=== PATIENT | female | born 1990 | race Caucasian/White ===

== ENCOUNTER → 2017-12-18 | Outpatient (CLI) | payer MEDICAID ==
--- NOTE | 2017-12-18 17:21 | Diagnostic Imaging Report ---
INDICATION: survey. TECHNIQUE: Multiple real-time grayscale images were obtained over the gravid uterus. COMPARISON: None. FINDINGS: There are no prior studies available for comparison. There is a single live fetus in cephalic presentation. heart motion was noted and a rate of 135 BPM was recorded. There were no abnormalities identified. However, the lower spine was not well visualized. The growth parameters are fairly uniform. The amniotic fluid volume is within normal limits. The placenta is anterior and there is no previa. The cervix was identified and measures 3.7 cm in length. IMPRESSION: 1. There is single live fetus at approximately 29 weeks 3 days gestation +/-2.5 weeks. The EDC is March 02, 2018. 2. There were no abnormalities identified but the lower spine was not well visualized. It may prove worthwhile to have a short-term (2-4 week) followup exam for further evaluation. 3. The growth parameters are fairly uniform. Biometrical measurements are as follows: Biparietal 7.24 cm, age 29 weeks 1 days. Head circumference 27.97 cm, age 30 weeks 5 days. Abdominal circumference 25.30 cm, age 29 weeks 4 days. Femur length 5.31 cm, age 28 weeks 2 days. Sonographic estimate age: 29 weeks 3 days. Sonographic estimated date of delivery: 03/02/18. Estimated Weight: 1344 gm (+/- 196 gm). LMP percentile: 37%. heart rate: 135 beats per minute. number: 1 of 1. Dictated by: Dictated on workstation # [id number]
== END ==
LOC: RAD 14:55
PROVIDERS: ATTEND Obstetrics & Gynecology
DX: O34.219 Maternal care for unspecified type scar from previous cesarean delivery (principal); Z3A.29 29 weeks gestation of pregnancy
CPT/HCPCS: 76805

== ENCOUNTER → 2018-01-28 | Outpatient (CLI) | payer MEDICAID ==
--- NOTE | 2018-01-28 15:08 | Diagnostic Imaging Report ---
INDICATION: Followup spine. TECHNIQUE: Multiple real-time grayscale images were obtained over the gravid uterus. COMPARISON: 12/18/2017. FINDINGS: There is a single live fetus in a cephalic presentation. heart rate was recorded at 134 beats per minute. Placenta is anterior. Amniotic fluid index is 13.2 cm. spine was evaluated today and appears unremarkable. IMPRESSION: Unremarkable limited obstetrical ultrasound. Dictated by: Dictated on workstation # [id number]
== END ==
LOC: RAD 11:07
PROVIDERS: ATTEND Obstetrics & Gynecology
DX: Z36.89 Encounter for other specified antenatal screening (principal); Z3A.00 Weeks of gestation of pregnancy not specified
CPT/HCPCS: 76816

== ENCOUNTER 2018-02-24 12:34 | Outpatient (CLI) | payer MEDICAID ==
[~2018-02-24] VITALS: Ht 151.1 cm; Wt 74.4 kg
[2018-02-24] MEDS ORDERED: PREN-53 PO (12:50)
[2018-02-24] MEDS ORDERED: FAMO40TA72 PO (12:50)
== END 2018-02-24 13:14 ==
LOC: PREOP 12:34
PROVIDERS: ATTEND Obstetrics & Gynecology
DX: Z01.818 Encounter for other preprocedural examination (principal)

== ENCOUNTER 2018-02-26 06:54 | Inpatient (IN) | payer MEDICAID ==
[~2018-02-26] VITALS: Ht 151.1 cm; Wt 74.4 kg
[~2018-02-26 06:54] MED LIST: FAMO40TA72 PO; PREN-53 PO
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
--- OUTSIDE RECORDS SUMMARY | 2018-02-26 06:59 | XMS REPORT | Continuity of Care Document ---
Author Author [facility] Organization [facility] Address [facility] [address] [place] [address] Phone Unavailable Support Name Relationship Address Phone GAEL LEE/DANE COLLINS Caregiver [address] [place] [address] NANCY MARTINEZ MD Caregiver [address] [place] [address] LITZY DONAHUE Next Of Kin [address] [place] [address] Insurance Providers Payer Name Policy Number Subscriber Name Relationship Self Pay Insurance Estrellita Watkins 18 Self / Same As Patient Advance Directives Directive Response Recorded Date/Time Do you have an Advanced Directive? No 12/06/04 10:09am Advance Directives No 09/05/13 11:02am Living Will No 09/05/13 11:02am Health Care Proxy No 03/20/14 3:34pm Power of Feed Mill Tender for Health Care No 09/05/13 11:02am Organ, [...] Instructions Order Date Discontinued Date Status Prenat Multivit/[place]/Iron/Folic Ac 1 Tab PO DAILY 01/07/10 Discontinued Nitrofurantoin/Nitrofuran Mac* 100 Mg PO TWICE A DAY 14 Qty 01/07/10 07/16/10 Discontinued [Ibuprofen] PO NEEDED 07/16/10 01/05/12 Discontinued Cephalexin Monohydrate 500 Mg PO FOUR TIMES DAILY 40 Qty 07/16/1007/11 Discontinued No Known Medications 11/05/12 03/25/14 Discontinued Prenat Multivit/[place]/Iron/Folic Ac 1 Udtab PO DAILY 05/24/13 Discontinued [...] care. Functional Status Query Response Date Recorded [place] Coma Scale Total 15 March 20, 2014 [...] /hpf H - CULT PP Urine Specific [place] May 24, 2013 1:45pm 1.015 N 1.010-1.025 [...] Encounters Encounter Location Date/Time Departed Emergency Room [facility] 03/20/14 9:33pm Registered Emergency Room [facility] 03/20/14 10:22am Recent Diagnosis
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
--- NOTE | 2018-02-26 07:00 | NUR ---
Arrived to unit for repeat . Wt obtained and to room 314, gowned and urine sample obtained. To bed and monitors on. Oriented to room, call light and surroundings. bed controls explained. plan of care reviewed with pt and family at bedside.
[2018-02-26 07:34] VITALS: BP 112/60
[2018-02-26] MEDS ORDERED: metroNIDAZOLE 500MG/100ML IVPB 100 ML IV ONE (07:45)
[2018-02-26] MEDS ORDERED: ceFAZolin INJECTION 1,000 MG in NS (IVPB) 50 ML IV ONE (07:45)
[2018-02-26] MEDS ORDERED: LACTATED RINGERS 1,000 ML IV PRN ×2 (07:48)
[2018-02-26] MEDS ORDERED: METOCLOPRAMIDE INJ 10 MG/2 ML (REGLAN) IV ONE (08:00)
[2018-02-26] MEDS ORDERED: FAMOTIDINE 20MG/2ML IV (PEPCID) IV ONE (08:00)
[2018-02-26] MEDS ORDERED: CATHETER FLUSH 10 ML SYR IV PRN (08:00)
[2018-02-26] MEDS ORDERED: CITRIC ACID/SOB CIT (BICITRA) 30 ML UDC PO ONE (08:00)
[2018-02-26 08:19] LABS: BASOPHILS % (AUTO) 0 % (0-10); EOSINOPHILS # (AUTO) 0.1 10^3/uL (0.0-0.3); EOSINOPHILS % (AUTO) 1 % (0-10); HEMATOCRIT 35 % (35-52); HEMOGLOBIN 11.7 G/DL (11.5-16.0); LYMPHOCYTES # (AUTO) 2.4 X 10^3 (1.0-4.0); LYMPHOCYTES % (AUTO) 18 % (12-44); MEAN CORPUSCULAR HEMOGLOBIN 31 PG (25-34); MEAN CORPUSCULAR HGB CONC 34 G/DL (32-36); MEAN CORPUSCULAR VOLUME 90 FL (80-99); MEAN PLATELET VOLUME 10.7 FL (7.4-10.4); MONOCYTES # (AUTO) 1.1 X 10^3 (0.0-1.0); MONOCYTES % (AUTO) 8 % (0-12); NEUTROPHILS # (AUTO) 9.9 X 10^3 (1.8-7.8); NEUTROPHILS % (AUTO) 73 % (42-75); PLATELET COUNT 219 10^3/uL (130-400); RED BLOOD COUNT 3.84 10^6/uL (4.35-5.85); RED CELL DISTRIBUTION WIDTH 13.4 % (10.0-14.5); WHITE BLOOD COUNT 13.6 10^3/uL (4.3-11.0)
--- NOTE | 2018-02-26 08:30 | NUR ---
fhr 125, +accels, no decels. ctx noted q 6 min duration 80-100sec, mild palpation
--- NOTE | 2018-02-26 08:38 | Progress Note-Pre Operative ---
Pre-Operative Progress Note H&P Reviewed The H&P was reviewed, patient examined and no changes noted. Date Seen by Provider: Feb 26, 2018 Time Seen by Provider: 08:20 Date H&P Reviewed: Feb 26, 2018 Time H&P Reviewed: 08:15 Pre-Operative Diagnosis: previous section, ovarian cancer risk reduction SIMEON WHEELER DO Feb 26, 2018 08:38
[2018-02-26] MEDS ORDERED: FLU QUADRIvalent (5+ YOA) 2018-2019 (AFLURIA) 0.5 ML IM ONE (08:45)
[2018-02-26] MEDS ORDERED: LIDOCAINE PF 2% 5 ML (XYLOCAINE) VIAL ONE (09:00)
[2018-02-26] MEDS ORDERED: OXYTOCIN/NORMAL SALINE 1,000 ML IV ONE (09:00)
[2018-02-26] MEDS ORDERED: BUPIVACAINE SPINAL 0.75% (SENSORCAINE) 2 ML AMP ONE (09:00)
[2018-02-26] MEDS ORDERED: fentaNYL INJECTION 100 MCG/2 ML AMP ONE (09:01)
--- NOTE | 2018-02-26 09:08 | NUR ---
pt off monitors and ambulates to OR suite by OR staff for repeat
--- NOTE | 2018-02-26 09:08 | NUR ---
fhr pattern 120 with mod variabilty, accels present, no decels. ctx 3-5min, duration 60-80sec, mild palpation monitors off and pt ambulates to OR suite accompanied by OR staff.
[2018-02-26 09:28] LABS: CLARITY,URINE CLEAR; COLOR,URINE AMBER; GLUCOSE, URINE (UA) NEGATIVE (NEGATIVE); KETONES,URINE 1+ (NEGATIVE); LEUKOCYTE ESTERASE ,URINE 2+ (NEGATIVE); NITRITE,URINE NEGATIVE (NEGATIVE); PH,URINE 6 (5-9); PROTEIN,URINE 3+ (NEGATIVE); UROBILINOGEN,URINE 4 MG/DL (NORMAL)
[2018-02-26 09:38] LABS: BACTERIA,URINE MODERATE /HPF; BILIRUBIN,URINE 1+ (NEGATIVE); RBC,URINE 25-50 /HPF; YEAST,URINE FEW /HPF
[2018-02-26] MEDS ORDERED: ONDANSETRON 4 MG/2 ML (SDV) Z0FRAN ONE (09:46)
[2018-02-26] MEDS ORDERED: OXYTOCIN/NORMAL SALINE 500 ML IV SCH (10:25)
[2018-02-26] MEDS ORDERED: MEASLES,MUMPS,RUBELLA 1 EA INJ SC SCH (10:30)
[2018-02-26] MEDS ORDERED: HYDROmorphone 2 MG/ML VIAL (DILAUDID) IV PRN (10:30)
[2018-02-26] MEDS ORDERED: TETANUS,DIPTH,PERTUSS P/F (BOOSTRIX) 0.5 ML VIAL IM SCH (10:30)
--- NOTE | 2018-02-26 10:41 | Cesarean Section Operative ---
Procedure Procedure Note Pre-operative Diagnosis: Maria Dolores Walker is a (29 /Para 6 /4014 , Gestational Age 39 weeks with history of previous section x 4, ovarian cancer risk reduction Post-operative Diagnosis: same Procedure: Repeat low transverse section Physician: SIMEON WHEELER Plum Packer: Dorinda Chavis APRN; legal document assistant necessary to retract important structures and assist in the section Estimated blood loss: 500 mL Disposition: stable Findings: Viable male infant, Apgars 8/9, [id number], intact placenta, 3vc, normal appearing uterus, tubes, and ovaries. Omentum adherent and protruding through the rectus muscles, left peritubal adhesions Indications:Maria Dolores moore a 29 /Para 6 /4014 ,Gestational Age 39 weeks with history of previous section x 4, ovarian cancer risk reduction; presenting for repeat section and risk reduction salpingectomy Procedure Details: The patient was seen in pre-op and the procedure was discussed with the patient in full, including the risks, benefits, and alternatives. All questions were answered. The patient was taken to the operating room and a time out was performed, verifying patient and procedure. After spinal anesthesia was placed by our anesthesia colleagues, the patient was placed in the dorsal supine with leftward tilt for uterine displacement.~ Her abdomen was then prepped and draped in the typical sterile fashion. A Pfannenstiel skin incision was made using a scalpel and carried down through the underlying fascia. The fascia was incised in the midline and tented up using Sekou clamps. On both the inferior and superior fascia side the rectus muscle was dissected off bluntly and sharply using Singer scissors. There was omentum herniating through the rectus muscles. The peritoneum was identified and entered bluntly in the midline. I took down the omental adhesions to allow entry into the abdominal cavity. This was done in a blunt and sharp fashion. This was then stretched laterally using manual strength. After entering the abdominal cavity, a large Ghanshyam retractor was placed and the lower uterine segment was visualized. the bladder was advanced over the lower uterine segment. A bladder flap was created with the use of Metzenbaum scissors.~ A scalpel was utilized to make a low transverse uterine incision. The lower uterine segment was very thin. Amniotomy was performed with an Allis clamp with return of clear fluid. The 's head was grasped and brought to the level of the incision. Fundal pressure was applied and was delivered without difficulty. There was a nuchal cord delivered through. Mouth and nares were suctioned with bulb suction. After the umbilical cord was clamped and cut, the was handed off to the pediatric staff. A sample of cord blood was then obtained. The placenta was delivered intact via uterine massage. The uterus was cleared of all clots and debris. The uterine incision was closed using 0 Vicryl in a running locked fashion. A second imbricated layer was placed using 0 Vicryl in a running fashion as well. The gutters were inspected and cleared of all clots and debris. Again the hysterotomy site was examined and hemostasis was observed. The bilateral tubes and ovaries appeared normal bit there were adhesions of the left tube to the ovary and left side of the uterus. A final check of the uterine incision showed it to be hemostatic. At this time, I did a partial omentectomy as there were adhesions to the recuts muscles and upon taken these down, there is a large defect noted in the center with concern for bowel herniation. I came across the omentum with the LigaSure thus cauterizing and cutting. This took down the rest of the rectus muscle adhesions as well. The peritoneum was closed using 3-0 Vicryl in a running fashion. I also brought the rectus muscles together in the midline with the 3-0 vicryl. The fascia was closed with 0 Vicryl in a running fashion. the patient has felt a defect in the fascia on the right, just above the incision, but once the uterus is removed, this is no longer palpable and may be incorporated into the fascial closure. The subcutaneous space was hemostatic, and irrigated. The subcutaneous space was closed with 3-0 Plain in several single interrupted stitches. The skin was then closed using 4-0 Monocryl in a running subcuticular fashion. The skin edges were reapproximated together and were hemostatic. A pressure dressing was applied. All sponge, lap and needle counts were correct at the end of the procedure per nursing. Vitals - Labs Labs Laboratory Tests 02/26/18 08:00: White Blood Count 13.6H, Red Blood Count 3.84L, Hemoglobin 11.7, Hematocrit 35, Mean Corpuscular Volume 90, Mean Corpuscular Hemoglobin 31, Mean Corpuscular Hemoglobin Concent 34, Red Cell Distribution Width 13.4, Platelet Count 219, Mean Platelet Volume 10.7H, Neutrophils (%) (Auto) 73, Lymphocytes (%) (Auto) 18 , Monocytes (%) (Auto) 8, Eosinophils (%) (Auto) 1, Basophils (%) (Auto) 0, Neutrophils # (Auto) 9.9H, Lymphocytes # (Auto) 2.4, Monocytes # (Auto) 1.1H, Eosinophils # (Auto) 0.1, Basophils # (Auto) 0.0, Urine Color AMBERH, Urine Clarity CLEAR, Urine pH 6, Urine Specific [place] 1.025H, Urine Protein 3+H, Urine Glucose (UA) NEGATIVE, Urine Ketones 1+H, Urine Nitrite NEGATIVE, Urine Bilirubin 1+H, Urine Urobilinogen 4H, Urine Leukocyte Esterase 2+H, Urine RBC ( Auto) 5+H, Urine RBC 25-50H, Urine WBC 5-10H, Urine Squamous Epithelial Cells 5- 10, Urine Crystals NONE, Urine Bacteria MODERATEH, Urine Casts NONE, Urine Mucus NEGATIVE, Urine Yeast FEWH, Urine Culture Indicated YES SIMEON WHEELER DO Feb 26, 2018 10:41
[2018-02-26] MEDS ORDERED: IBUP-844 PO (10:46)
[2018-02-26] MEDS ORDERED: OXYC1TAB87 PO (10:46)
[2018-02-26] MEDS ORDERED: DOCU100C37 PO (10:46)
--- NOTE | 2018-02-26 11:20 | Discharge Inst-Women's Service ---
Discharge Inst-Women's Serv Depart Medication/Instructions New, Converted or Re-Newed RX: RX on Chart Instructions Repeat section risk reduction salpingectomy partial salpingectomy Final Diagnosis Previous section ovarian cancer risk reduction Consults/Follow Up Additional Follow Up: Yes (1 week with Dorinda Chavis for incision check and 6 weeks for post exam with Musa) Activity Activity: Activity as Tolerated Driving Instructions: No Driving for 1 Week NO SMOKING: NO SMOKING Nothing Inside Vagina: No Douching, No [place], No Tampons Diet Discharge Diet: No Restrictions Symptoms to Report to : Bleeding Excessive, Pain Increased, Fever Over 101 Degrees F, Vaginal Bleeding Increase, Cramps in Feet or Legs, Vaginal Discharge Foul For Any Problems or Questions: Contact Your Physician Skin/Wound Care Infection Signs and Symptoms: Increased Redness, Foul Odor of Wound, Increased Drainage, Skin Itchy or Has a Rash, Increased Swelling, Temperature Above 101 F Operative Area Clean and Dry: Keep Incision Clean/Dry Stitches/[place]/Dermabond: Dermabond Bathing Instructions: SIMEON Weston DO Feb 26, 2018 11:20
--- NOTE | 2018-02-26 11:40 | NUR ---
Pt arrived from PACU to room 313. Report received from Kimberly Kern RN. Pt awake and alert. reports abd pain and requests pain medication. pt instructed on how to order food and process and pt ordering at this time.
[2018-02-26 12:10] VITALS: BP 124/76
[2018-02-26] MEDS: KETOROLAC 30 MG/ML VIAL IVP SCH ×3 (12:13→23:33)
--- NOTE | 2018-02-26 12:49 | NUR ---
RT notified of incentive ordered
--- NOTE | 2018-02-26 13:30 | NUR ---
ffu/2 with lt-mod rubra. no clots expressed.
[2018-02-26] MEDS: oxyCODONE/APAP 5/325MG (PERCOCET 5) TABLET PO PRN ×3 (14:20→22:30)
--- NOTE | 2018-02-26 16:40 | NUR ---
Assisted up to bathroom, void and pericare. small clot expressed while up to bathroom. Assisted back to bed and abd binder on with assist. plan of care reviewed with pt.
[2018-02-26 17:38] VITALS: BP 108/64
[2018-02-26] MEDS: CATHETER FLUSH 10 ML SYR IV SCH ×2 (17:38→22:31)
[2018-02-26 20:00] VITALS: BP 114/57
[2018-02-26] MEDS: DOCUSATE SODIUM 100 MG (COLACE) CAP PO SCH (20:34)
[2018-02-26] MEDS ORDERED: guaiFENesin (MUCINEX) 600 MG TAB PO ONE (21:29)
[2018-02-26] MEDS: guaiFENesin (MUCINEX) 600 MG TAB PO SCH (21:35)
--- NOTE | 2018-02-26 23:35 | NUR ---
REPORT RECEIVED AND CARES RESUMED BY THIS NURSE. VSS. TORADOL ADMINISTERED. PT DENIES ANY NEEDS.
[2018-02-26 23:41] VITALS: BP 114/63
--- NOTE | 2018-02-27 01:15 | NUR ---
SPRITE GIVEN. PT DENIES ANY FURTHER NEEDS.
[2018-02-27 03:55] VITALS: BP 116/69
--- NOTE | 2018-02-27 03:55 | NUR ---
PT REPORTS HAVING BEEN RESTING WELL, BUT WAS AWAKENED BY PAIN. PERCOCET 2 TAB PO ADMINISTERED. VSS. PT DENIES ANY FURTHER NEEDS AT THIS TIME.
[2018-02-27] MEDS: oxyCODONE/APAP 5/325MG (PERCOCET 5) TABLET PO PRN ×5 (03:56→21:43)
[2018-02-27] MEDS: CATHETER FLUSH 10 ML SYR IV SCH (06:05)
--- NOTE | 2018-02-27 06:05 | NUR ---
IV FLUSHED. TORADOL GIVEN SIVP. ABD DRESSING REMOVED. INCISION INTACT AND EDGES WELL APPROXIMATED. PT SESAR WELL. IV THEN REMOVED WITH GOOD HEMOSTASIS. PT GIVEN SPRITE. DENIES ANY FURTHER NEEDS.
[2018-02-27 06:19] LABS: BASOPHILS % (AUTO) 0 % (0-10); EOSINOPHILS # (AUTO) 0.2 10^3/uL (0.0-0.3); EOSINOPHILS % (AUTO) 1 % (0-10); HEMATOCRIT 32 % (35-52); LYMPHOCYTES # (AUTO) 2.5 X 10^3 (1.0-4.0); LYMPHOCYTES % (AUTO) 22 % (12-44); MEAN CORPUSCULAR HEMOGLOBIN 31 PG (25-34); MEAN CORPUSCULAR HGB CONC 35 G/DL (32-36); MEAN CORPUSCULAR VOLUME 91 FL (80-99); MEAN PLATELET VOLUME 10.6 FL (7.4-10.4); MONOCYTES # (AUTO) 0.8 X 10^3 (0.0-1.0); MONOCYTES % (AUTO) 7 % (0-12); NEUTROPHILS % (AUTO) 70 % (42-75); PLATELET COUNT 220 10^3/uL (130-400); RED CELL DISTRIBUTION WIDTH 13.7 % (10.0-14.5); WHITE BLOOD COUNT 11.5 10^3/uL (4.3-11.0)
[2018-02-27] MEDS: KETOROLAC 30 MG/ML VIAL IVP SCH (06:19)
[2018-02-27 08:45] VITALS: BP 107/68
--- NOTE | 2018-02-27 08:45 | NUR ---
A.M. ASSESSMENT COMPLETED. SHOWER SET UP. DOING WELL. CARING FOR IN ROOM.
[2018-02-27] MEDS: guaiFENesin (MUCINEX) 600 MG TAB PO SCH ×2 (08:56→21:43)
[2018-02-27] MEDS: FERROUS SULF 325 MG (IRON) TAB PO SCH (08:56)
[2018-02-27] MEDS: DOCUSATE SODIUM 100 MG (COLACE) CAP PO SCH ×2 (08:57→21:43)
[2018-02-27] MEDS ORDERED: FLU QUADRIvalent (5+ YOA) 2018-2019 (AFLURIA) 0.5 ML IM ONE (08:59)
--- NOTE | 2018-02-27 09:05 | NUR ---
FLU AND TDAP VACCINES GIVEN.
--- NOTE | 2018-02-27 09:46 | Postpartum Progress Note ---
Note Note Day # 1 Subjective: Patient is without complaints. Ambulating, voiding. Tolerating a regular diet without nausea or vomiting. Normal lochia. Pain is well controlled with oral pain medications. Objective: Vital Signs 02/27/18 03:55 Temp 98.0 Pulse 75 Resp 16 B/P (MAP) 116/69 (85) Pulse Ox 96 O2 Delivery Room Air Physical Exam: General - Alert and oriented, no apparent distress Abdomen - Soft, appropriately tender to palpation, non-distended, fundus firm at umbilicus Extremities - no edema, negative Wanda's bilaterally Incision- c/d/i Assessment: POD 1 RLTCS Acute blood loss anemia Plan: Routine care. Encourage breast feeding. Encourage ambulation. Ferrous sulfate supplementation. Plan for discharge tomorrow Vitals - Labs Vital Signs - I&O Vital Signs Date Time Temp Pulse Resp B/P (MAP) Pulse Ox O2 Delivery O2 Flow Rate FiO2 02/27/18 03:55 98.0 75 16 116/69 (85) 96 Room Air 02/26/18 23:41 98.3 77 16 114/63 (80) 97 Room Air 02/26/18 20:00 97.0 82 16 114/57 (76) 96 Room Air 02/26/18 17:38 97.9 86 18 108/64 (79) 97 Room Air 02/26/18 12:10 98.4 87 18 124/76 (92) 100 Room Air I & O 02/27/18 07:00 Intake Total 1880 ml Output Total 675 ml Balance 1205 ml Labs Laboratory Tests 02/27/18 06:06: White Blood Count 11.5H, Red Blood Count 3.50L, Hemoglobin 11.0L, Hematocrit 32L , Mean Corpuscular Volume 91, Mean Corpuscular Hemoglobin 31, Mean Corpuscular Hemoglobin Concent 35, Red Cell Distribution Width 13.7, Platelet Count 220, Mean Platelet Volume 10.6H, Neutrophils (%) (Auto) 70, Lymphocytes (%) (Auto) 22 , Monocytes (%) (Auto) 7, Eosinophils (%) (Auto) 1, Basophils (%) (Auto) 0, Neutrophils # (Auto) 8.0H, Lymphocytes # (Auto) 2.5, Monocytes # (Auto) 0.8, Eosinophils # (Auto) 0.2, Basophils # (Auto) 0.0 CAROLE VU DO Feb 27, 2018 9:46 am
--- NOTE | 2018-02-27 10:30 | NUR ---
SHOWERED WITHOUT PROBLEMS. OUT TO AMBULATE IN THE IGLESIAS.
[2018-02-27 12:15] VITALS: BP 115/69
--- NOTE | 2018-02-27 12:20 | NUR ---
RESTING IN BED AND WATCHING TV. OFFERS NO COMPLAINTS. ASLEEP IN CRIB AT BEDSIDE.
[2018-02-27] MEDS: IBUPROFEN 600 MG (MOTRIN) TAB PO SCH ×2 (12:22→17:38)
--- NOTE | 2018-02-27 12:58 | Anesthesia-Regional Post-Op ---
Regional Patient Condition Mental Status: Alert, Oriented x3 Circulation: Same as Pre-Op Headache: Absent Sensation: Full Recovery Motor Block: Absent Post Op Complications Complications None Follow Up Care/Instructions Patient Instructions None needed. Anesthesia/Patient Condition Patient is doing well, no complaints, stable vital signs, no apparent adverse anesthesia problems. No complications reported per nursing. MAYANK SANTAMARIA CRNA Feb 27, 2018 12:58
--- NOTE | 2018-02-27 14:30 | NUR ---
REQUESTING PAIN MEDS. INFORMED OF NEED TO WAIT ANOTHER HOUR R/T TYLENOL BEING AT MAXIMUM FOR 24 HOURS. SPOUSE AT BEDSIDE. CONTINUES TO CARE FOR IN ROOM.
[2018-02-27] MEDS ORDERED: SIMETHICONE 80 MG (MYLICON) CHEW PO PRN (15:45)
--- NOTE | 2018-02-27 15:46 | NUR ---
PAIN MEDS AND SIMETHICONE GIVEN. ICE PACK TO INCISION. BINDER OFF FOR AWHILE.
--- NOTE | 2018-02-27 16:30 | NUR ---
AMBULATING IN THE IGLESIAS WITH IN CRIB. MOVING MUCH BETTER.
--- NOTE | 2018-02-27 17:40 | NUR ---
ENCOURAGED TO CONTINUE TO DO INCENTIVE SPIROMETRY. NOTED TO BE COUGHING WHEN ENTERED ROOM. INSP AND EXP. WHEEZING NOTED BILATERALLY. PT COUGHED AND CLEARED. SPUTUM YELLOWISH PER PT.
[2018-02-27 17:45] VITALS: BP 107/60
--- NOTE | 2018-02-27 18:25 | NUR ---
ORDER RECEIVED FOR CONSULT WITH RT TO EVALUATE AND GIVE BREATHING TREATMENT. RT NOTIFIED.
[2018-02-27] MEDS ORDERED: RT-ALBUTEROL SULF 2.5 MG/3 ML PRE-MIX VIAL ONE (20:22)
[2018-02-27] MEDS ORDERED: RT-ALBUTEROL SULF 2.5 MG/3 ML PRE-MIX VIAL INH PRN (20:45)
[2018-02-28 00:01] VITALS: BP 109/74
[2018-02-28] MEDS: IBUPROFEN 600 MG (MOTRIN) TAB PO SCH ×2 (00:01→06:20)
[2018-02-28] MEDS: oxyCODONE/APAP 5/325MG (PERCOCET 5) TABLET PO PRN ×2 (04:18→10:26)
[2018-02-28 06:10] VITALS: BP 124/72
[2018-02-28] MEDS: guaiFENesin (MUCINEX) 600 MG TAB PO SCH (08:41)
[2018-02-28] MEDS: FERROUS SULF 325 MG (IRON) TAB PO SCH (08:41)
[2018-02-28] MEDS: DOCUSATE SODIUM 100 MG (COLACE) CAP PO SCH (08:41)
--- NOTE | 2018-02-28 10:08 | Postpartum Progress Note ---
Note Note Day # 2 Subjective: Patient is without complaints. Ambulating, voiding. Tolerating a regular diet without nausea or vomiting. Normal lochia. Pain is well controlled with oral pain medications. Patient has had significant congestion that has improved substantially with Mucinex Objective: Physical Exam: General - Alert and oriented, no apparent distress Abdomen - Soft, appropriately tender to palpation, non-distended, fundus firm at umbilicus Extremities - no edema, negative Wanda's bilaterally Incision- c/d/i Assessment: POD 2 RLTCS Acute blood loss anemia Plan: Routine care. Encourage breast feeding. Encourage ambulation. Ferrous sulfate supplementation. Plan for discharge today Vitals - Labs Vital Signs - I&O Vital Signs Date Time Temp Pulse Resp B/P (MAP) Pulse Ox O2 Delivery O2 Flow Rate FiO2 02/28/18 06:10 98.6 87 18 124/72 (89) 97 Room Air 02/28/18 00:01 98.9 94 18 109/74 (86) 98 Room Air 02/27/18 20:30 87 98 21 02/27/18 17:45 98.2 64 18 107/60 (76) 98 Room Air 02/27/18 12:15 98.2 80 18 115/69 (84) 98 Room Air I & O 02/28/18 07:00 Intake Total 2710 ml Output Total 3300 ml Balance -590 ml Labs Microbiology 02/26/18 Urine Culture - Final, Complete See Report CAROLE VU DO Feb 28, 2018 10:08 am
[2018-02-28 12:55] VITALS: BP 108/67
== END 2018-02-28 12:55 | disposition home or self-care (01) | DRG 784 ==
LOC: LDRP 06:54
PROVIDERS: ADMIT Obstetrics & Gynecology; ATTEND Obstetrics & Gynecology
PROC: 0UT70ZZ Resection of Bilateral Fallopian Tubes, Open Approach (ICD-10-PCS; 2018-02-26)
PROC: 10D00Z1 Extraction of Products of Conception, Low, Open Approach (ICD-10-PCS; principal; 2018-02-26 09:12)
DX: O34.211 Maternal care for low transverse scar from previous cesarean delivery (principal); O99.334 Smoking (tobacco) complicating childbirth; F17.210 Nicotine dependence, cigarettes, uncomplicated; O99.343 Other mental disorders complicating pregnancy, third trimester; F41.9 Anxiety disorder, unspecified; O90.81 Anemia of the puerperium; D62 Acute posthemorrhagic anemia; R09.81 Nasal congestion; Z3A.39 39 weeks gestation of pregnancy; Z37.0 Single live birth; Z40.02 Encounter for prophylactic removal of ovary(s); Z88.0 Allergy status to penicillin
CPT/HCPCS: 36415; 81000; 85025; 86850; 86900; 86901; 87088; 90686; 90715; 94664